=== PATIENT | male | born 1955 | race Caucasian/White ===

== ENCOUNTER → 2020-12-04 | Outpatient (CLI) | payer OTHER | LOC: CAT 12:02 | PROVIDERS: ATTEND Internal Medicine | DX: Z13.6 Encounter for screening for cardiovascular disorders (principal); I25.10 Atherosclerotic heart disease of native coronary artery without angina pectoris; E78.00 Pure hypercholesterolemia, unspecified ==

== ENCOUNTER → 2020-12-10 | Outpatient (CLI) | payer BC | LOC: SJCVCIMAG 10:31 | PROVIDERS: ATTEND Internal Medicine | DX: I08.8 Other rheumatic multiple valve diseases (principal); R93.1 Abnormal findings on diagnostic imaging of heart and coronary circulation; I10 Essential (primary) hypertension; Z82.49 Family history of ischemic heart disease and other diseases of the circulatory system ==

== ENCOUNTER → 2021-02-05 | Outpatient (CLI) | payer BC | LOC: SJCVCIMAG 07:37 | PROVIDERS: ATTEND Internal Medicine | DX: I34.0 Nonrheumatic mitral (valve) insufficiency (principal); R93.1 Abnormal findings on diagnostic imaging of heart and coronary circulation; E78.00 Pure hypercholesterolemia, unspecified; I10 Essential (primary) hypertension; I25.10 Atherosclerotic heart disease of native coronary artery without angina pectoris; E78.5 Hyperlipidemia, unspecified; Z79.899 Other long term (current) drug therapy; Z79.82 Long term (current) use of aspirin; Z72.89 Other problems related to lifestyle ==

== ENCOUNTER → 2021-02-17 | Outpatient (CLI) | payer BC ==
[~2021-02-17] VITALS: Ht 180.3 cm; Wt 92.5 kg
[~2021-02-17] MED LIST: ASA81BEC PO; FENOFIBRATE160 MG PO; FISH OIL 1,0001 EAC9 PO; LIPITOR40 MG PO; LOTREL 10-20 M1 EACH PO; SUPER THERAVIT1 EACH PO; VITAMIN D3125 MCG PO
[2021-02-17 08:14] VITALS: BP 119/71
--- NOTE | 2021-02-17 13:09 | CATHLAB ---
[facility] [place] [address] INVASIVE PROCEDURE REPORT Name: NICOLE JENNINGS Room #: REG TRISHA Pérez.#: [id number] Admission: 02/17/21 Attend Phys: Mian Morris MD Discharge: Date of : 55 Report #: [id number] THIS REPORT FOR: cc: Germain Lezama MD, David P. MD Park, Jin S. MD ~ APPROVED REPORT Study performed: 02/17/2021 09:01:03 Patient Details Patient Status: Out-Patient Room #: The patient is a 65 year-old male Event Personnel Mian Morris Report Programmer, Bruna Estrada RT(R)() Monitor, Lia Blandon RTR KevinubZach Jessica RN high pressure operator Performed Art Access - R femoral artery* Left Heart Cath w/or w/o Coronaries [id number] [facility] [address]45 Initial Mod Sed Same Phys/QHP 5y [id number] Hemostasis with Manual pressure Indication Dyspnea, Positive stress test Risk Factors Hypercholesterolemia, Coronary Artery DiseaseHypertension Procedure Narrative The Right Groin^ was infiltrated with 1% Lidocaine subcutaneous anesthesia. A PINNACLE 4FR Sheath #[id number] sheath was inserted into the RFA 4F^. Coronary angiography was performed using coronary diagnostic catheters. The right coronary system was accessed and visualized with a JR4 catheter. The left coronary system was accessed and visualized with a JL4 catheter. The left ventricle was accessed and visualized with a PIGTAIL catheter. Hemostasis was obtained with manual pressure following sheath removal without any complications. The patient tolerated the procedure well and there were no complications associated with the procedure. There was no hematoma. Intraoperative Conscious Sedation Fentanyl 50 mcg Versed 1 mg [facility] [address] [place] [address] INVASIVE PROCEDURE REPORT Name: NICOLE JENNINGS Room #: REG CL [facility]#: [id number] Admission: 02/17/21 Attend Phys: Mian Morris MD Discharge: Date of : 55 Report #: [id number] Fluoro Time: 3.20 minutes Dose: DAP 7448.50 cGycm2 Contrast Type and Amount: Omnipaque 89 ml Coronary Angiography The patient's coronary anatomy is right dominant. Diagnostic Cath Left Main The left main artery is a large-caliber vessel, appears angiographically normal. LAD The LAD is a moderate-sized caliber vessel, traversing the anterior wall and terminating at the apex. There is calcification in the proximal and mid segments. There is mild disease in the proximal segment, 20%. There is a mild to moderate diffuse stenosis in the midsegment, 30 to 40%. Diagonal 1 This is a small caliber vessel, with no flow-limiting lesions. Diagonal 2 This is a small caliber vessel, with no flow-limiting lesions. Circumflex The left circumflex artery is a moderate-sized caliber vessel with a mild stenosis proximally, 20%. OM1 This is a moderate-sized caliber vessel, patent with no flow-limiting lesions. OM2 This is a moderate-sized caliber vessel, patent with no flow-limiting lesions. Right Coronary The RCA is a dominant vessel with a mild stenosis proximally, 20%. R PDA This is a small to moderate-sized caliber vessel, patent with no flow-limiting lesions. RPLV This is a small to moderate-sized caliber vessel, patent with no flow-limiting lesions. Left Ventriculography The left ventricle is normal in size with normal contractility. The left ventricular ejection fraction is estimated to be >55%. Hemodynamics The aortic pressure is 117/70 mmHg with a mean of 91 mmHg. The left ventricular pressure is 114/8 mmHg with a mean of mmHg. The left ventricular end diastolic pressure is 18 mmHg. Conclusion 1. There is mild to moderate disease in the LAD. 2. There is mild disease in the left circumflex and RCA. [facility] [address] [place] [address] INVASIVE PROCEDURE REPORT Name: NICOLE JENNINGS Room #: REG [facility]#: [id number] Admission: 02/17/21 Attend Phys: Mian Morris MD Discharge: Date of : 55 Report #: [id number] 3. There is normal LV systolic function. 4. Recommend aggressive risk factor management. <ELECTRONICALLY SIGNED> By: Mian Morris MD 02/17/21 [id number] 130 08 Mian Morris MD /INF
== END | disposition home or self-care (01) ==
LOC: CATH 02-11 08:53
PROVIDERS: ATTEND Internal Medicine Cardiovascular Disease
DX: R94.39 Abnormal result of other cardiovascular function study (principal); I25.10 Atherosclerotic heart disease of native coronary artery without angina pectoris; R93.1 Abnormal findings on diagnostic imaging of heart and coronary circulation; R06.00 Dyspnea, unspecified; I10 Essential (primary) hypertension; E78.00 Pure hypercholesterolemia, unspecified; Z98.890 Other specified postprocedural states; Z79.899 Other long term (current) drug therapy; Z90.49 Acquired absence of other specified parts of digestive tract; Z82.49 Family history of ischemic heart disease and other diseases of the circulatory system